=== PATIENT | male | born 1990 | race Caucasian/White ===

== ENCOUNTER 2017-01-19 08:10 | Emergency (ER) | payer OTHER, SELFPAY ==
[2017-01-19] MEDS ORDERED: Sodium Chloride 0.9% 5 ML Syringe FLUSH PRN (08:29)
[2017-01-19] MEDS ORDERED: Ondansetron 4 MG/2 ML SDV IVPUSH ONE (08:29)
[2017-01-19] MEDS ORDERED: Sodium Chloride 0.9% 1,000 ML IV ONE (08:29)
[2017-01-19] MEDS ORDERED: HYDROmorphone 1 MG/ML Syringe IVPUSH ONE (08:29)
--- NOTE | 2017-01-19 08:31 | EDM.PDOC ---
ED HPI GENERAL MEDICAL PROBLEM - General Chief Complaint: Abdominal Pain Stated Complaint: ABDOMINAL PAIN Time Seen by Provider: 01/19/17 08:20 Source of Information: Reports: Patient History Limitations: Reports: No Limitations - History of Present Illness INITIAL COMMENTS - FREE TEXT/NARRATIVE: 26 YO WM presents to ER complaining of gereralized abdominal pain with intractable vomiting which began 5 hours ago. Pt reports he woke with periumbilical abdominal pain and started vomiting immeiately. Pt reports pain is generalized now and feels as if his abdomen is swollen. Pt denies any previous GI complaints. Pt states he had a loose stool this am. Pt denies any fever/chills. Pt denies any previous abdominal surgeries Onset: Today Onset Date: 01/19/17 Onset Time: 02:00 Location: Reports: Abdomen Quality: Reports: Ache Severity: Moderate Improves with: Reports: None Worsens with: Reports: None Associated Symptoms: Reports: Nausea/Vomiting - Related Data Allergies Allergy/AdvReac Type Severity Reaction Status Date / Time No Known Allergies Allergy Verified 01/19/17 08:47 ED ROS GENERAL - Review of Systems Review Of Systems: See Below Constitutional: Reports: No Symptoms HEENT: Reports: No Symptoms Respiratory: Reports: No Symptoms Cardiovascular: Reports: No Symptoms Endocrine: Reports: No Symptoms GI/Abdominal: Reports: Abdominal Pain, Nausea, Vomiting : Reports: No Symptoms Musculoskeletal: Reports: No Symptoms Skin: Reports: No Symptoms Neurological: Reports: No Symptoms Psychiatric: Reports: No Symptoms Hematologic/Lymphatic: Reports: No Symptoms Immunologic: Reports: No Symptoms ED EXAM, GI/ABD - Physical Exam Exam: See Below Exam Limited By: No Limitations General Appearance: Alert, WD/WN, No Apparent Distress Throat/Mouth: Normal Inspection, Normal Lips, Normal Teeth, Normal Gums, Normal Oropharynx, Normal Voice, No Airway Compromise Head: Atraumatic, Normocephalic Neck: Normal Inspection, Supple, Non-Tender, Full Range of Motion Respiratory/Chest: No Respiratory Distress, Lungs Clear, Normal Breath Sounds, No Accessory Muscle Use, Chest Non-Tender Cardiovascular: Normal Peripheral Pulses, Regular Rate, Rhythm, No Edema, No Gallop, No JVD, No Murmur, No Rub GI/Abdominal Exam: Distended, Guarding, Rebound, Tender (generalized) Back Exam: Normal Inspection, Full Range of Motion, NT Extremities: Normal Inspection, Normal Range of Motion, Non-Tender, Normal Capillary Refill, No Pedal Edema Neurological: Alert, Oriented, CN II-XII Intact, Normal Cognition, Normal Gait, Normal Reflexes, No Motor/Sensory Deficits Psychiatric: Normal Affect, Normal Mood Skin Exam: Warm, Dry, Intact, Normal Color, No Rash Lymphatic: No Adenopathy Course - Orders/Labs/Meds Orders: Active Orders 24 hr Category Date Time Status Peripheral IV Care [RC] . DIRECTED Care 01/19/17 08:30 Active Abdomen Pelvis w Cont [CT] Stat Exams 01/19/17 08:29 Taken UA W/MICROSCOPIC [URIN] Stat Lab 01/19/17 08:29 Ordered Sodium Chloride 0.9% [Syrex Flush] Med 01/19/17 08:29 Active 5 ml FLUSH Q8HR PRN Peripheral IV Insertion Adult [OM.PC] Routine Oth 01/19/17 08:29 Ordered Medication Orders Sodium Chloride (Syrex Flush) 5 ml FLUSH Q8HR PRN PRN Reason: Keep Vein Open Labs: Laboratory Tests 01/19/17 01/19/17 Range/Units 08:35 08:35 WBC 18.2 H (5.0-10.0) 10^3/uL RBC 5.34 (4.50-6.00) 10^6/uL Hgb 15.4 (13.0-17.0) g/dL Hct 47.2 (40.0-52.0) % MCV 88.5 (82.0-92.0) fL MCH 28.8 (27.0-31.0) pg MCHC 32.6 (32.0-36.0) g/dL RDW 13.1 (11.5-14.5) % Plt Count 251 (150-300) 10^3/uL MPV 7.4 (7.4-10.4) fL Neut % (Auto) 85.7 H (50.0-70.0) % Lymph % (Auto) 9.6 L (20.0-40.0) % [place] % (Auto) 4.6 (2.0-8.0) % Eos % (Auto) 0.1 L (1.0-3.0) % Baso % (Auto) 0.0 (0.0-1.0) % Neut # (Auto) 15.7 H (2.5-7.0) 10^3/uL Lymph # (Auto) 1.7 (1.0-4.0) 10^3/uL [place] # (Auto) 0.8 (0.1-0.8) 10^3/uL Eos # (Auto) 0.0 L (0.1-0.3) 10^3/uL Baso # (Auto) 0.0 (0.0-0.1) 10^3/uL Sodium 136 (136-145) mmol/L Potassium 3.5 (3.3-5.3) mmol/L Chloride 103 (98-115) mmol/L Carbon Dioxide 21.5 (21.0-32.0) mmol/L BUN 11 (6-25) mg/dL Creatinine 0.89 (0.51-1.17) mg/dL Est Cr Clr Drug Dosing TNP Estimated GFR (MDRD) > 60 mL/min Glucose 120 H (70-110) mg/dL Calcium 9.0 (8.7-10.3) mg/dL Total Bilirubin 1.3 H (0.2-1.0) mg/dL AST 13 L (15-37) U/L ALT 36 (12-78) U/L Alkaline Phosphatase 85 (46-116) IU/L Total Protein 7.9 (6.4-8.2) g/dL Albumin 4.03 (3.00-4.80) g/dL Lipase 74 (73-393) U/L Meds: Medications Generic Name Dose Route Start Last Admin Trade Name Freq PRN Reason Stop Dose Admin Sodium Chloride 5 ml 01/19/17 08:29 Syrex Flush FLUSH Q8HR PRN Keep Vein Open Discontinued Medications Generic Name Dose Route Start Last Admin Trade Name Freq PRN Reason Stop Dose Admin Hydromorphone HCl 1 mg 01/19/17 08:29 Dilaudid IVPUSH 01/19/17 08:30 ONETIME ONE Sodium Chloride 1,000 mls @ 999 mls/hr 01/19/17 08:29 Normal Saline IV 01/19/17 09:29 .BOLUS ONE Iopamidol 75 ml 01/19/17 08:48 01/19/17 09:03 Isovue-300 (61%) IV 75 ml . DIRECTED PRN Administration FOR RADIOLOGY EXAM Ondansetron HCl 4 mg 01/19/17 08:29 Zofran IVPUSH 01/19/17 08:30 ONETIME ONE Sodium Chloride 50 ml 01/19/17 08:48 01/19/17 09:03 Normal Saline FLUSH 01/19/17 08:49 50 ml ONETIME ONE Administration - Radiology Interpretation Free Text/Narrative:: CT Abd/Pelvis- acute appendicitis Departure - Departure Time of Disposition: 09:36 Disposition: DC/Tfer to Acute Hospital 02 Condition: Fair Clinical Impression: Appendicitis Qualifiers: Appendicitis type: acute appendicitis Acute appendicitis type: unspecified acute appendicitis type Qualified Code(s): K35.80 - Unspecified acute appendicitis - Discharge Information Referrals: PCP,None [Primary Care Provider] - Forms: ED Department Discharge, Interfacility Transfer [facility] - My Orders Last 24 Hours: My Active Orders 01/19/17 08:29 Abdomen Pelvis w Cont [CT] Stat UA W/MICROSCOPIC [URIN] Stat Sodium Chloride 0.9% [Syrex Flush] 5 ml FLUSH Q8HR PRN Peripheral IV Insertion Adult [OM.PC] Routine 01/19/17 08:30 Peripheral IV Care [RC] . DIRECTED - Assessment/Plan Last 24 Hours: My Active Orders 01/19/17 08:29 Abdomen Pelvis w Cont [CT] Stat UA W/MICROSCOPIC [URIN] Stat Sodium Chloride 0.9% [Syrex Flush] 5 ml FLUSH Q8HR PRN Peripheral IV Insertion Adult [OM.PC] Routine 01/19/17 08:30 Peripheral IV Care [RC] . DIRECTED Assessment:: 1. Acute appendicitis Plan: 1. Transfer to [facility] for surgicqal evaluation of acute appendicitis 2. supportive care 3. IVF 125cc/hr 4. NPO
[2017-01-19] MEDS ORDERED: Sodium Chloride 0.9% 50 ML SDV FLUSH ONE (08:48)
[2017-01-19] MEDS ORDERED: Iopamidol 612 MG/ML 75 ML Bottle IV PRN (08:48)
[2017-01-19 09:11] LABS: CHLORIDE,CL 103 mmol/L (98-115); SODIUM,NA 136 mmol/L (136-145)
== END 2017-01-19 10:05 ==
LOC: KA.ED 08:10
DX: K35.80 Unspecified acute appendicitis (principal)
CPT/HCPCS: 74177; 80053; 81001; 83690; 85025; 96361; 96374; 96375; 99285; J1170; J2405; J7030; Q9967; 99284